=== PATIENT | female | born 1960 | race Caucasian/White ===

== ENCOUNTER 2023-12-10 10:21 | Day surgery (SDC) | payer MEDICARE, MEDICAID ==
[2023-12-10] VITALS (12 sets, daily range): BP systolic 103–153; BP diastolic 53–80; PULSE 76–125; RESP 15–16; TEMP 98.2; O2SAT 98–99
[~2023-12-10] VITALS: Ht 170.2 cm; Wt 110.4 kg
[2023-12-10] MEDS ORDERED: FLEC50TA PO (11:14)
[2023-12-10] MEDS ORDERED: APIX5TAB3 PO (11:14)
[2023-12-10] MEDS ORDERED: LISI10TA27 PO (11:14)
[2023-12-10] MEDS ORDERED: HYDR12.55 PO (11:14)
[2023-12-10] MEDS ORDERED: normal saline 1000ml 1,000 ML IV SCH (11:20)
[2023-12-10] MEDS ORDERED: MULT-1085 PO (11:28)
[2023-12-10] MEDS ORDERED: Tumeric PO (11:28)
[2023-12-10] MEDS ORDERED: VITA100T5 (11:28)
[2023-12-10] MEDS ORDERED: LORA10TA7 PO (11:28)
[2023-12-10] MEDS ORDERED: OMEG100037 PO (11:28)
[2023-12-10] MEDS ORDERED: CHOL100046 PO (11:28)
[2023-12-10 11:49] LABS: BASOPHILS # (AUTO) 0.1 X10'3 (0-0.2); BASOPHILS % (AUTO) 0.7 % (0-1); EOSINOPHILS # (AUTO) 0.1 X10'3 (0-0.9); EOSINOPHILS % (AUTO) 0.8 % (0-6); HEMATOCRIT 40.3 % (35.0-45.0); HEMOGLOBIN 13.6 g/dl (12.0-16.0); LYMPHOCYTES # (AUTO) 2.6 X10'3 (1.1-4.8); LYMPHOCYTES % (AUTO) 28.2 % (21-51); MEAN CORPUSCULAR HEMOGLOBIN 29.6 PG (27.0-31.0); MEAN CORPUSCULAR HGB CONC 33.8 g/dL (33.0-36.5); MEAN CORPUSCULAR VOLUME 87.7 FL (78-98); MEAN PLATELET VOLUME 7.8 FL (7.4-10.4); MONOCYTES # (AUTO) 0.6 X10'3 (0-0.9); MONOCYTES % (AUTO) 6.9 % (2-12); NEUTROPHILS # (AUTO) 5.9 X10'3 (1.8-7.7); NEUTROPHILS % (AUTO) 63.4 % (42-75); PLATELET COUNT 359 X10'3 (140-440); RED CELL DISTRIBUTION WIDTH 13.1 % (11.5-14.5); WHITE BLOOD COUNT 9.3 X10'3 (4.5-11.0)
[2023-12-10 11:54] LABS: ALBUMIN 3.6 G/DL (3.4-5.0); ANION GAP 12 (8-16); BLOOD UREA NITROGEN 32 MG/DL (7-18); BUN/CREATININE RATIO 27.4 (10.0-20.0); CALCIUM 10.7 MG/DL (8.5-10.1); CHLORIDE 105 MMOL/L (99-107); CREATININE 1.17 MG/DL (0.40-0.90); GLUCOSE 107 MG/DL (70-104); POTASSIUM 4.3 MMOL/L (3.5-5.1); SODIUM 141 MMOL/L (135-145); TOTAL CARBON DIOXIDE 24.3 MMOL/L (24-32); eCRCL 49 ML/MIN; eGFR 47 ML/MIN
[2023-12-10 11:58] LABS: APTT 29 SECONDS (22-32); PROTHROMBIN TIME 10.9 SECONDS (9.0-12.0)
[2023-12-10] MEDS: fentaNYL/PF 50MCG/1 ML 2ML syringe IV ONE (12:19)
[2023-12-10] MEDS: normal saline 1000ml 1,000 ML IV SCH (12:19)
[2023-12-10] MEDS: MIDAZolam 1mg/ml 10ml vial IV ONE (12:19)
== END 2023-12-10 13:30 | disposition home or self-care (01) ==
LOC: SSTAY O 10:21
PROVIDERS: ATTEND Student in an Organized Health Care Education/Training Program
DX: I48.91 Unspecified atrial fibrillation (principal); I10 Essential (primary) hypertension; Z79.01 Long term (current) use of anticoagulants; Z79.899 Other long term (current) drug therapy; Z88.5 Allergy status to narcotic agent
CPT/HCPCS: 36415; 80048; 85025; 85610; 85730; 92960; 93005; J2250; J3010; J7030; A4620